=== PATIENT | female | born 1940 | race Caucasian/White ===

== ENCOUNTER 2019-06-18 15:35 | Emergency (ER) | payer MEDICARE, SELFPAY ==
[2019-06-18 15:40] VITALS: BP 146/68; PULSE 62; RESP 18; TEMP 37.3; O2SAT 94
[2019-06-18 16:07] LABS: Bilirubin Negative (Negative); Blood Negative (Negative); Clarity Clear (Clear); Glucose Negative (Negative); Ketones Negative (Negative); Leukocyte Esterase Negative (Negative); Nitrite Negative (Negative); Urobilinogen 0.2 EU/dL (Up TO 0.2); pH 5.5 (5-8)
--- NOTE | 2019-06-18 16:32 | ED.GENADUL_ITS ---
Discharge Plan Disposition Patient Disposition: HOME Discharge Details Chief Complaint: Urinary Clinical Impression: Fatigue, Dementia Primary Care Provider: Unknown,Unknown ED Provider: Tayo Lee Home Meds and New Rx's Prescriptions: No Action quetiapine 25 mg Tablet 25 mg PO DAILY RF: 0 ascorbic acid (vitamin C) [Vitamin C] 500 mg Tablet 1,000 mg PO BID RF: 0 Refresh Tears 0.5 % Drops 2 drp OPHTHALMIC (EYE) BID RF: 0 sertraline 50 mg Tablet 50 mg PO DAILY RF: 0 trazodone 50 mg Tablet 25 mg PO DAILY RF: 0 atorvastatin 40 mg Tablet 40 mg PO DAILY RF: 0 amlodipine 10 mg Tablet 10 mg PO DAILY RF: 0 cranberry 450 mg Tablet 900 mg PO BID RF: 0 donepezil 10 mg Tablet 10 mg PO DAILY RF: 0 estradiol 0.01 % (0.1 mg/gram) Cream 0.01 % VAGINAL DIRECTED RF: 0 famotidine 20 mg Tablet 20 mg PO BID RF: 0 furosemide 20 mg Tablet 20 mg PO DAILY RF: 0 isosorbide mononitrate 60 mg Tablet Extended Release 24 Hr 60 mg PO DAILY RF: 0 levothyroxine 50 mcg Tablet 50 mcg PO DAILY RF: 0 acetaminophen [Mapap (acetaminophen)] 500 mg Capsule 1,000 mg PO TID RF: 0 methenamine hippurate 1 gram Tablet 1 g PO BID RF: 0 metoprolol tartrate 50 mg Tablet 50 mg PO BID RF: 0 mirtazapine 7.5 mg Tablet 7.5 mg PO DAILY RF: 0 Myrbetriq 25 mg Tablet Extended Release 24 Hr 25 mg PO DAILY RF: 0 oxybutynin chloride 5 mg Tablet 5 mg PO DAILY RF: 0 Discharge Instructions Instructions: Dementia (ED), Fatigue (ED) Referrals: Unknown,Unknown [Primary Care Provider] - Return if symptoms worsen Medical Decision Making 17:16 Family is now asking for discharge. Patient has a normal-appearing urine. They state that she was just checked for her wheezing and found no pneumonia in [place]. Their biggest concern was that of a developing urinary tract infection and would prefer no other blood work or imaging done. She is lucid and her thought process today. It sounds as though her symptoms have been chronic in nature after discussing her case with her son who is her primary caregiver. I suspect that the majority of her fatigue is related to her recent travel. Her vitals are stable and is without fever here. Her exam outside of her upper lobe wheezing is within normal limits. She has no focal neurological deficits. I discussed with the family return precautions and the need to follow-up with her primary care provider should there be any ongoing concern. HPI General Date/Time Provider Initiated Documentation: 06/18/19 15:54 . HPI Narrative: Patient is an 79-year-old female with a history of dementia presenting to the emergency department with roughly 24 to 48 hours of fatigue. Patient states that she gets similar symptoms with urinary tract infections. She was recently treated in [place] for UTI on Cipro 500 mg twice daily x5 days. Patient recently traveled up from [place] for a wedding. She has been fatigued since the travel. She denies any specific symptoms such as chest pain, cough, shortness of breath, abdominal pain, dysuria or low back pain. Her family who is with her today does not live with her and is unsure what her baseline is. She is lucid in her conversation today. Related Data Home Medications Medication Instructions Recorded Confirmed acetaminophen [Mapap 1,000 mg PO TID 06/18/19 06/18/19 (acetaminophen)] amlodipine 10 mg PO DAILY 06/18/19 06/18/19 ascorbic acid (vitamin C) [Vitamin 1,000 mg PO BID 06/18/19 06/18/19 C] atorvastatin 40 mg PO DAILY 06/18/19 06/18/19 carboxymethylcellulose sodium 2 drp OPHTHALMIC (EYE) BID 06/18/19 06/18/19 [Refresh Tears] cranberry 900 mg PO BID 06/18/19 06/18/19 donepezil 10 mg PO DAILY 06/18/19 06/18/19 estradiol 0.01 % VAGINAL DIRECTED 06/18/19 06/18/19 famotidine 20 mg PO BID 06/18/19 06/18/19 furosemide 20 mg PO DAILY 06/18/19 06/18/19 isosorbide mononitrate 60 mg PO DAILY 06/18/19 06/18/19 levothyroxine 50 mcg PO DAILY 06/18/19 06/18/19 methenamine hippurate 1 g PO BID 06/18/19 06/18/19 metoprolol tartrate 50 mg PO BID 06/18/19 06/18/19 mirabegron [Myrbetriq] 25 mg PO DAILY 06/18/19 06/18/19 mirtazapine 7.5 mg PO DAILY 06/18/19 06/18/19 oxybutynin chloride 5 mg PO DAILY 06/18/19 06/18/19 quetiapine 25 mg PO DAILY 06/18/19 06/18/19 sertraline 50 mg PO DAILY 06/18/19 06/18/19 trazodone 25 mg PO DAILY 06/18/19 06/18/19 Allergies Allergy/AdvReac Type Severity Reaction Status Date / Time acetaminophen [From Vicodin] AdvReac Intermediate hallucinate Unverified 06/18/19 15:48 s hydrocodone [From Vicodin] AdvReac Intermediate hallucinate Unverified 06/18/19 15:48 s Influenza Virus Vaccines AdvReac Intermediate full body Unverified 06/18/19 15:48 rash prednisone AdvReac Intermediate total body Unverified 06/18/19 15:48 rash Penicillins AdvReac Unknown childhood Unverified 06/18/19 15:48 reaction General Stated Complaint: Urinary ALEKS: 3 Review of Systems Constitutional Denies anorexia, Denies body ache(s), Denies chills, Denies daytime sleepiness, Denies difficulty sleeping, Denies excessive sweating, Reports fatigue, Denies fever(s), Denies frequent falls, Denies headache(s), Denies increased appetite, Reports lethargy, Denies malaise, Denies night sweats, Denies poor appetite and Denies weakness Eyes Denies blind spots and Denies blurry vision ENT Denies dizziness and Denies headache(s) Cardiovascular Denies chest pain, Denies syncope, Denies dyspnea and Denies dyspnea on exertion Respiratory Denies cough, Denies dyspnea and Denies dyspnea on exertion Gastrointestinal Denies abdominal pain, Denies diarrhea, Denies nausea and Denies vomiting Genitourinary Denies hematuria, Denies difficulty voiding, Denies nocturia, Denies dysuria and Denies flank pain Musculoskeletal Denies joint swelling, Denies numbness and Denies tingling Neurologic Reports confusion, Denies dizziness, Denies syncope, Denies frequent falls, Denies headache(s), Denies focal weakness, Reports memory loss, Denies numbness, Denies convulsions, Denies sensory deficit, Denies tingling, Denies paresthesias and Denies weakness Psychiatric Reports confusion and Reports memory loss Endocrine Denies excessive sweating and Reports fatigue [facility] Social History Smoking/Tobacco Use Status: Former Tobacco Use Drug use: Never Do you feel safe at home: Yes Do you feel safe in your relationship?: Yes Additional Social history: assisted living Exam Const General: cooperative, healthy appearing, comfortable and no acute distress Nutritional Appearance: average body habitus Orientation: alert, awake, oriented to person, not oriented to place and oriented to time [facility] Head: normal to inspection, no palpable skull fracture, normocephalic and atraumatic Face and sinus: normal facial exam Mouth: oral mucosae normal Throat: posterior oropharynx normal Eyes General: appearance normal, both eyes and all related structures Visual Paiz: normal visual paiz by confrontation Alignment and Position: alignment normal Pupils: PERRL EOM: EOM intact bilaterally Neck Neck: normal visual inspection, full ROM, no lymphadenopathy and no meningeal signs Chest Chest: normal inspection of the chest Resp Effort & Inspection: normal respiratory effort Auscultation: wheezes expiratory wheezes and upper bilaterally Cardio Rate: regular rate Rhythm: regular rhythm Heart Sounds: S1 normal and S2 normal Pulses: normal peripheral pulses Back/Spine/Pelvis Back: no CVA tenderness Neuro Cranial Nerves: CN's II-XI intact bilaterally Gait: normal gait Motor: muscle tone normal throughout Sensory Exam: no sensory deficits noted Course Vital Signs Temperature 37.3 C 06/18/19 15:40 Pulse 62 06/18/19 15:40 Respiratory Rate 18 06/18/19 15:40 Blood Pressure 146/68 H 06/18/19 15:40 Pulse Oximetry 94 L 06/18/19 15:40 Temperature 37.3 C 06/18/19 15:40 Temperature Source Skin 06/18/19 15:40 Pulse 62 06/18/19 15:40 Respiratory Rate 18 06/18/19 15:40 Respiratory Effort 06/18/19 15:48 Blood Pressure 146/68 H 06/18/19 15:40 Blood Pressure Position Sitting 06/18/19 15:40 Pulse Oximetry 94 L 06/18/19 15:40 Oxygen Delivery Method Room Air 06/18/19 15:40 Oxygen Flow Rate 0 06/18/19 15:40 Pain Level 10 06/18/19 15:40 Comment 06/18/19 15:40 Lab/Test Results Lab/Test Results: Laboratory Tests Range/Units 06/18/19 15:55 Urine Color (Yellow) Yellow Urine Clarity (Clear) Clear Urine pH (5-8) 5.5 Ur Specific [place] (1.005-1.025) 1.010 Urine Protein (Negative) mg/dL Negative Urine Ketones (Negative) mg/dL Negative Urine Blood (Negative) Negative Urine Nitrite (Negative) Negative Urine Bilirubin (Negative) Negative Urine Urobilinogen (Up TO 0.2) EU/dL 0.2 Ur Leukocyte Esterase (Negative) Negative Urine Glucose (Negative) mg/dL Negative
[2019-06-18 17:01] LABS: Abs Immature Grans 0.01 k/cumm (0.0-0.09); Absolute Basophil Count 0.08 k/cumm (0.0-0.2); Absolute Eosinophil Count 0.12 k/cumm (0.0-0.7); Absolute Neutrophil Count 3.82 k/cumm (1.2-6.7); Basophils % 1.2; Eosinophils % 1.8; HCT 40.3 % (36.0-46.0); HGB 13.2 g/dL (12.0-15.5); Immature Grans % 0.2; Lymphocytes % 27.6; Mean Corp. HGB Concentration 32.8 g/dL (32.0-36.0); Mean Corpuscular Hemoglobin 30.5 pg (27.0-33.0); Mean Corpuscular Volume 93.1 fL (80-95); Mean Platelet Volume 9.8 fL (8.0-11.0); Monocytes % 10.7; Neutrophils % 58.5; Platelet Count 255 x1000/uL (130-400); RBC 4.33 m/cumm (4.00-5.20); RBC Distribution Width 13.7 % (11.7-14.6); White Blood Cell Count 6.53 k/cumm (4.4-10.8)
[2019-06-18 17:16] LABS: ALT 18 U/L (14-59); AST 11 U/L (15-37); Albumin 3.8 g/dL (3.4-5.0); Alkaline Phosphatase 90 U/L (46-116); Anion Gap 12.1 mmol/L (3-11); BUN 15 mg/dL (7-18); Bilirubin, Total 0.4 mg/dL (0.2-1.0); CO2 24.9 mmol/L (21.0-32.0); CREATININE 1.01 mg/dL (0.55-1.02); Calcium 8.9 mg/dL (8.5-10.1); Chloride 107 mmol/L (98-107); Estimated GFR 52.74 (mL/min/1.73m2); Glucose 132 mg/dL (70-100); Potassium 3.9 mmol/L (3.5-5.1); Sodium 144 mmol/L (136-145); Total Protein 7.6 g/dL (6.4-8.2)
== END 2019-06-18 17:25 | disposition home or self-care (01) ==
PROVIDERS: Emergency Provider Physician Assistant
DX: R53.83 Other fatigue (principal); F03.90 Unspecified dementia, unspecified severity, without behavioral disturbance, psychotic disturbance, mood disturbance, and anxiety
CPT/HCPCS: 36415; 80053; 99283; 81003; 85025